=== PATIENT | female | born 1975 | race Caucasian/White ===

== ENCOUNTER 2017-12-02 23:04 | Emergency (ER) | payer SELFPAY ==
[~2017-12-02] VITALS: Ht 170.2 cm; Wt 49.9 kg
[2017-12-02 23:38] VITALS: BP 175/66; PULSE 95; RESP 18; TEMP 99.6; O2SAT 100
[2017-12-03 00:37] LABS: AUTOMATED NEUTROPHIL # 4.7 TH/MM3 (1.8-7.7); BASOPHIL # 0.1 TH/MM3 (0-0.2); BASOPHIL % 0.7 % (0.0-2.0); EOSINOPHIL # 0.2 TH/MM3 (0-0.4); EOSINOPHIL % 2.8 % (0.0-4.0); HEMATOCRIT 39.2 % (35.0-46.0); HEMOGLOBIN 13.7 GM/DL (11.6-15.3); LYMPHOCYTE # 2.1 TH/MM3 (1.0-4.8); MEAN CELL VOLUME 89.2 FL (80.0-100.0); MEAN CORPUSCULAR HEMOGLOBIN 31.1 PG (27.0-34.0); MEAN CORPUSCULAR HGB CONC 34.9 % (32.0-36.0); MEAN PLATELET VOLUME 8.6 FL (7.0-11.0); MONOCYTE # 0.8 TH/MM3 (0-0.9); NEUT % 59.5 % (16.0-70.0); PLATELET COUNT 218 TH/MM3 (150-450); RED BLOOD COUNT 4.39 MIL/MM3 (4.00-5.30); WHITE BLOOD COUNT 7.8 TH/MM3 (4.0-11.0)
--- NOTE | 2017-12-03 00:56 | PD ---
HPI Chief Complaint: Psychiatric Symptoms Time Seen by Provider: 00:40 Travel History International Travel<30 days: No Contact w/Intl Traveler<30days: No Traveled to known affect area: No History of Present Illness HPI This patient was transferred here from [facility] for psychiatric evaluation. She is under Mallory act. See their notes for complete history of present illness. She was medically cleared at [facility]. [facility] Social History Tobacco Use: Yes Review of Systems Except as stated in HPI: all other systems reviewed are Neg Physical Exam Narrative GENERAL: Well-nourished female who is sleeping easily arousable SKIN: Warm and dry. HEAD: Atraumatic. Normocephalic. EYES: Pupils equal and round. No scleral icterus. No injection or drainage. ENT: No nasal bleeding or discharge. Mucous membranes pink and moist. NECK: Trachea midline. No JVD. CARDIOVASCULAR: Regular rate and rhythm. No murmur appreciated. RESPIRATORY: No accessory muscle use. Clear to auscultation. Breath sounds equal bilaterally. GASTROINTESTINAL: Abdomen soft, non-tender, nondistended. Hepatic and splenic margins not palpable. MUSCULOSKELETAL: No obvious deformities. No clubbing. No cyanosis. No edema. NEUROLOGICAL: Awake and alert. No obvious cranial nerve deficits. Motor grossly within normal limits. Normal speech. PSYCHIATRIC: Appropriate mood and affect; insight and judgment normal. Data Data Last Documented VS Vital Signs Date Time Temp Pulse Resp B/P (MAP) Pulse Ox O2 Delivery O2 Flow Rate FiO2 12/02/17 23:38 99.6 95 18 175/66 (102) 100 Room Air Orders Orders Complete Blood Count With Diff (12/02/17 23:17) Comprehensive Metabolic Panel (12/02/17 23:17) Thyroid Stimulating Hormone (12/02/17 23:17) Psych Screen (12/02/17 23:17) Drug Screen, Random Urine (12/02/17 23:17) Alcohol (Ethanol) (12/02/17 23:17) Labs Laboratory Tests Test 12/02/17 22:50 White Blood Count 7.8 TH/MM3 Red Blood Count 4.39 MIL/MM3 Hemoglobin 13.7 GM/DL Hematocrit 39.2 % Mean Corpuscular Volume 89.2 FL Mean Corpuscular Hemoglobin 31.1 PG Mean Corpuscular Hemoglobin Concent 34.9 % Red Cell Distribution Width 13.0 % Platelet Count 218 TH/MM3 Mean Platelet Volume 8.6 FL Neutrophils (%) (Auto) 59.5 % Lymphocytes (%) (Auto) 27.0 % Monocytes (%) (Auto) 10.0 % Eosinophils (%) (Auto) 2.8 % Basophils (%) (Auto) 0.7 % Neutrophils # (Auto) 4.7 TH/MM3 Lymphocytes # (Auto) 2.1 TH/MM3 Monocytes # (Auto) 0.8 TH/MM3 Eosinophils # (Auto) 0.2 TH/MM3 Basophils # (Auto) 0.1 TH/MM3 CBC Comment DIFF FINAL Differential Comment Blood Urea Nitrogen 17 MG/DL Creatinine 0.74 MG/DL Random Glucose 97 MG/DL Total Protein 6.9 GM/DL Albumin 3.1 GM/DL Calcium Level 8.7 MG/DL Alkaline Phosphatase 63 U/L Aspartate Amino Transf (AST/SGOT) 26 U/L Alanine Aminotransferase (ALT/SGPT) 28 U/L Total Bilirubin 0.5 MG/DL Sodium Level 139 MEQ/L Potassium Level 3.8 MEQ/L Chloride Level 107 MEQ/L Carbon Dioxide Level 24.6 MEQ/L Anion Gap 7 MEQ/L Estimat Glomerular Filtration Rate 86 ML/MIN Thyroid Stimulating Hormone 3rd Gen 0.996 uIU/ML Urine Opiates Screen NEG Urine Barbiturates Screen NEG Urine Amphetamines Screen POS Urine Benzodiazepines Screen NEG Urine Cocaine Screen POS Urine Cannabinoids Screen NEG Ethyl Alcohol Level LESS THAN 3 MG/DL MDM Medical Decision Making Medical Screen Exam Complete: Yes Emergency Medical Condition: Yes Medical Record Reviewed: Yes Differential Diagnosis Acute psychosis, schizophrenia, substance-induced mood disorder Narrative Course Drug screen positive for cocaine and methamphetamines. Medically cleared. Diagnosis Primary Impression: Medical clearance for psychiatric admission Jacob Guerrero Dec 03, 2017 00:56
[2017-12-03 00:57] LABS: ALBUMIN 3.1 GM/DL (3.4-5.0); ALT (GPT) 28 U/L (10-53); AST (GOT) 26 U/L (15-37); BICARBONATE 24.6 MEQ/L (21.0-32.0); BLOOD UREA NITROGEN 17 MG/DL (7-18); CALCIUM 8.7 MG/DL (8.5-10.1); CHLORIDE 107 MEQ/L (98-107); CREATININE 0.74 MG/DL (0.50-1.00); GLOMERULAR FILTRATION RATE 86 ML/MIN (>89); GLUCOSE,RANDOM 97 MG/DL (74-106); SODIUM (NA) 139 MEQ/L (136-145)
[2017-12-03 01:05] LABS: ALKALINE PHOSPHATASE 63 U/L (45-117); TOTAL BILIRUBIN ADULT 0.5 MG/DL (0.2-1.0); TOTAL PROTEIN 6.9 GM/DL (6.4-8.2)
[2017-12-03 02:22] VITALS: BP 127/60; PULSE 78; RESP 17; TEMP 99.2; O2SAT 99
[2017-12-03 06:26] VITALS: BP 137/61; PULSE 70; RESP 18; TEMP 98.4; O2SAT 95
--- NOTE | 2017-12-03 09:03 | PD.PSY.CON ---
Provisional Diagnosis Admission Date Date of consultation 12/03/17 Willcox I. 1. Adjustment disorder with disturbance of conduct 2. Polysubstance abuse 3. Reported history of bipolar disorder, presently stable Willcox II. 1. Some cluster B personality traits History of Present Illness Service Psychiatry Consult Requested By Emergency department Reason for Consult Mallory act Primary Care Physician Unknown HPI Ms. Montoya is a 42-year-old female with a reported history of bipolar disorder who presents in transfer from [facility] under a Mallory act. Documentation from outside hospital reviewed. Mallory act alleges that the patient was hitting her head on a wall in the emergency department. Urine toxicology at outside hospital was positive for cocaine and amphetamines. Reviewing the electronic medical record, I note this is patient's first visit to [facility]. Patient seen and examined. Chart reviewed. Case discussed with nursing staff. There has been no evidence of any suicidality or homicidality while the patient has been under observation in the [facility]. On my examination this morning the patient is clinically sober. She says that she has been having marital conflict. She does not remember banging her head in the emergency department but does say that she was intoxicated at the time. She denies any urge to self injure presently and denies any suicidal or homicidal ideation, intent or plan on direct questioning and contracts for safety. She feels that her bipolar disorder is stable, and I can elicit no depressive or hypomanic/ manic symptoms. She denies any audiovisual hallucinations. I can elicit no delusional material. There is no evidence of any impairment in reality construction. Cluster B personality traits are noted. The remainder of the psychiatric ROS is negative. No acute physical complaints although she does have some chronic back pain. Past psychiatric history: Patient reports a history of bipolar disorder diagnosed in 1996. She is not currently under the care of a psychiatrist and takes no psychotropic medications. She says that she has not been psychiatrically admitted in several years. She denies a history of suicide attempts. Denies a history of violent behavior. Family history: The patient notes that bipolar disorder runs in her family. There is no family history of suicide. Chemical dependency history: The patient admits to recent use of crack cocaine and amphetamines. She also tried LSD in the . Social history: The patient lives with her . She has a 19-year-old son. She has a shoplifting charge and is awaiting a court date but denies any legal issues otherwise. She denies any access to guns or firearms. She is high school educated. She is a Jew. Review of Systems Except as stated in HPI: all other systems reviewed are Neg Past Family Social History Coded Allergies: Penicillins (Unverified Allergy, Unknown, RASH, 12/03/17) ibuprofen (Unverified Allergy, Unknown, HIVES, 12/03/17) Past Medical History See electronic medical record Reports no current medications Patient's Strengths (min. 2) Attending to basic needs. Verbally fluent. Physical Exam Physical exam completed by ED provider. On my examination today, patient appears to be in mild distress due to chronic back pain. No signs of intoxication or withdrawal noted. No motor abnormalities noted. Labs and vitals reviewed: Vital Signs Vital Signs Date Time Temp Pulse Resp B/P (MAP) Pulse Ox O2 Delivery O2 Flow Rate FiO2 12/03/17 06:26 98.4 70 18 137/61 (86) 95 Room Air Lab Results Test 12/02/17 22:50 White Blood Count 7.8 TH/MM3 Red Blood Count 4.39 MIL/MM3 Hemoglobin 13.7 GM/DL Hematocrit 39.2 % Mean Corpuscular Volume 89.2 FL Mean Corpuscular Hemoglobin 31.1 PG Mean Corpuscular Hemoglobin Concent 34.9 % Red Cell Distribution Width 13.0 % Platelet Count 218 TH/MM3 Mean Platelet Volume 8.6 FL Neutrophils (%) (Auto) 59.5 % Lymphocytes (%) (Auto) 27.0 % Monocytes (%) (Auto) 10.0 % Eosinophils (%) (Auto) 2.8 % Basophils (%) (Auto) 0.7 % Neutrophils # (Auto) 4.7 TH/MM3 Lymphocytes # (Auto) 2.1 TH/MM3 Monocytes # (Auto) 0.8 TH/MM3 Eosinophils # (Auto) 0.2 TH/MM3 Basophils # (Auto) 0.1 TH/MM3 CBC Comment DIFF FINAL Differential Comment Blood Urea Nitrogen 17 MG/DL Creatinine 0.74 MG/DL Random Glucose 97 MG/DL Total Protein 6.9 GM/DL Albumin 3.1 GM/DL Calcium Level 8.7 MG/DL Alkaline Phosphatase 63 U/L Aspartate Amino Transf (AST/SGOT) 26 U/L Alanine Aminotransferase (ALT/SGPT) 28 U/L Total Bilirubin 0.5 MG/DL Sodium Level 139 MEQ/L Potassium Level 3.8 MEQ/L Chloride Level 107 MEQ/L Carbon Dioxide Level 24.6 MEQ/L Anion Gap 7 MEQ/L Estimat Glomerular Filtration Rate 86 ML/MIN Thyroid Stimulating Hormone 3rd Gen 0.996 uIU/ML Urine Opiates Screen NEG Urine Barbiturates Screen NEG Urine Amphetamines Screen POS Urine Benzodiazepines Screen NEG Urine Cocaine Screen POS Urine Cannabinoids Screen NEG Ethyl Alcohol Level LESS THAN 3 MG/DL Mental Status Examination Appearance: Disheveled (maintaining basic hygiene) Consciousness: Alert Orientation: x4 Motor Activity: Other (no motor abnormalities noted) Speech: Unremarkable Language: Adequate Fund of Knowledge: Adequate Attention and Concentration: Adequate Memory: Unremarkable Mood: Other (mildly dysphoric but not severely depressed) Affect: Blunt Thought Process & Associations: Intact Thought Content: Appropriate Hallucination Type: None Delusion Type: None Suicidal Ideation: No Suicidal Plan: No Suicidal Intention: No Homicidal Ideation: No Homicidal Plan: No Homicidal Intention: No Mental Status Exam Remarks Insight and judgment are likely chronically fair to poor Assessment & Plan Problem List: (1) Adjustment disorder ICD Codes: F43.20 - Adjustment disorder, unspecified Status: Acute (2) Polysubstance abuse ICD Codes: F19.10 - Other psychoactive substance abuse, uncomplicated Status: Acute Assessment & Plan 42-year-old female with psychiatric history as detailed above who presents in transfer from outside hospital under Mallory act. On my examination this morning the patient is clinically sober. She denies any suicidal or homicidal ideation. I can detect no unstable mental illness as defined under the Mallory act in this patient at this time. She appears to be attending to her basic needs. Synthesizing this information, I system safety engineer that the patient does not presently meet the Mallory act criteria. I have lifted the Mallory act. The patient is requesting discharge from the emergency room this morning and I have no basis to retain her over her objection. She does have substance use issues, and I have recommended that she pursue chemical dependency evaluation and treatment on an outpatient basis. I have recommended outpatient mental health follow-up as well. Nurse will provide the appropriate referrals. I have counseled the patient regarding warning signs for need to return to the psychiatric emergency room as part of a general safety plan. Patient is psychiatrically clear for discharge from the ED. Thank you very much for this consultation. Problem Qualifiers (1) Adjustment disorder: Qualified Codes: F43.24 - Adjustment disorder with disturbance of conduct Edward Bejarano MD Dec 03, 2017 09:03
--- NOTE | 2017-12-03 09:51 | PD ---
Physical Exam Date Seen by Provider: Dec 03, 2017 Time Seen by Provider: 09:49 Narrative Patient was seen and evaluated by the psychiatrist. Mallory Act has been lifted by the psychiatrist. I was asked to discharge the patient. The patient denies any suicidal or homicidal thoughts. She feels comfortable going home. Data Data Last Documented VS Vital Signs Date Time Temp Pulse Resp B/P (MAP) Pulse Ox O2 Delivery O2 Flow Rate FiO2 12/03/17 06:26 98.4 70 18 137/61 (86) 95 Room Air Orders Orders Complete Blood Count With Diff (12/02/17 23:17) Comprehensive Metabolic Panel (12/02/17 23:17) Thyroid Stimulating Hormone (12/02/17 23:17) Psych Screen (12/02/17 23:17) Drug Screen, Random Urine (12/02/17 23:17) Alcohol (Ethanol) (12/02/17 23:17) Diet Regular Basic (12/03/17 Breakfast) Labs Laboratory Tests Test 12/02/17 22:50 White Blood Count 7.8 TH/MM3 Red Blood Count 4.39 MIL/MM3 Hemoglobin 13.7 GM/DL Hematocrit 39.2 % Mean Corpuscular Volume 89.2 FL Mean Corpuscular Hemoglobin 31.1 PG Mean Corpuscular Hemoglobin Concent 34.9 % Red Cell Distribution Width 13.0 % Platelet Count 218 TH/MM3 Mean Platelet Volume 8.6 FL Neutrophils (%) (Auto) 59.5 % Lymphocytes (%) (Auto) 27.0 % Monocytes (%) (Auto) 10.0 % Eosinophils (%) (Auto) 2.8 % Basophils (%) (Auto) 0.7 % Neutrophils # (Auto) 4.7 TH/MM3 Lymphocytes # (Auto) 2.1 TH/MM3 Monocytes # (Auto) 0.8 TH/MM3 Eosinophils # (Auto) 0.2 TH/MM3 Basophils # (Auto) 0.1 TH/MM3 CBC Comment DIFF FINAL Differential Comment Blood Urea Nitrogen 17 MG/DL Creatinine 0.74 MG/DL Random Glucose 97 MG/DL Total Protein 6.9 GM/DL Albumin 3.1 GM/DL Calcium Level 8.7 MG/DL Alkaline Phosphatase 63 U/L Aspartate Amino Transf (AST/SGOT) 26 U/L Alanine Aminotransferase (ALT/SGPT) 28 U/L Total Bilirubin 0.5 MG/DL Sodium Level 139 MEQ/L Potassium Level 3.8 MEQ/L Chloride Level 107 MEQ/L Carbon Dioxide Level 24.6 MEQ/L Anion Gap 7 MEQ/L Estimat Glomerular Filtration Rate 86 ML/MIN Thyroid Stimulating Hormone 3rd Gen 0.996 uIU/ML Urine Opiates Screen NEG Urine Barbiturates Screen NEG Urine Amphetamines Screen POS Urine Benzodiazepines Screen NEG Urine Cocaine Screen POS Urine Cannabinoids Screen NEG Ethyl Alcohol Level LESS THAN 3 MG/DL MDM Supervised Visit with [facility]: No Diagnosis Primary Impression: Polysubstance abuse Additional Impression: Adjustment disorder Qualified Codes: F43.20 - Adjustment disorder, unspecified Referrals: [facility] for appointment Patient Instructions: General Instructions, Polysubstance Abuse (ED) Additional Instruction: Follow up at [facility]. Return to the emergency department for any acute, worsening symptoms. Med/Other Pt SpecificInfo: No Change to Meds Disposition: 01 DISCHARGE HOME Condition: Stable JoseCecile Dec 03, 2017 09:51
== END 2017-12-03 10:12 | disposition home or self-care (01) ==
LOC: NEPJ 23:04
DX: F43.20 Adjustment disorder, unspecified (principal); F19.10 Other psychoactive substance abuse, uncomplicated; F31.81 Bipolar II disorder; G89.29 Other chronic pain; M54.9 Dorsalgia, unspecified; Z72.0 Tobacco use
CPT/HCPCS: 80053; 80307; 84443; 85025; 99284